=== PATIENT | male | born 2005 ===

== ENCOUNTER 2024-05-20 13:08 | Emergency (ER) | payer SELFPAY ==
[2024-05-20] MEDS: Dexamethasone 4 MG/ML SDV IM ONE (14:08)
== END 2024-05-20 14:31 | disposition home or self-care (01) ==
LOC: DL.ED 13:08
DX: S00.561A Insect bite (nonvenomous) of lip, initial encounter (principal); W57.XXXA Bitten or stung by nonvenomous insect and other nonvenomous arthropods, initial encounter; Z91.018 Allergy to other foods
CPT/HCPCS: 96372; 99283; J1100